=== PATIENT | male | born 1930 | race Caucasian/White ===

== ENCOUNTER 2019-08-22 15:32 | Inpatient (IN) ==
[2019-08-22] MEDS ORDERED: 0.9 % Sodium Chloride 1,000 ML IVC ONE (16:04)
[2019-08-22 16:39] LABS: Basophils % 0.2 %; Eosinophils % 0.2 %; Hematocrit 32.4 % (37.5-50.1); Hemoglobin 9.9 g/dL (12.9-16.9); Lymphocytes % 11.6 %; Mean Corpuscular HGB Conc 30.6 g/dL (31.6-35.5); Mean Corpuscular Hemoglobin 29.3 pg (28.0-33.3); Mean Corpuscular Volume 95.9 fL (83.0-100.0); Mean Platelet Volume 8.2 fL (9.4-12.4); Monocytes % 11.6 %; Neutrophils # 6.1 K/mcL (1.6-8.9); Platelet Count 256 K/mcL (140-400); Red Blood Count 3.38 M/mcL (4.19-5.50); Red Cell Distribution Width 16.6 % (11.5-14.5); Segmented Neutrophils % 75.4 %; White Blood Count 8.2 K/mcL (4.3-11.1)
[2019-08-22 16:46] LABS: Prothrombin Time 11.3 Seconds (9.4-12.1)
[2019-08-22 16:49] LABS: Activated Partial Thrombo Time 30.5 Seconds (26.0-36.0)
[2019-08-22 17:01] LABS: Alanine Aminotransferase 18 Units/L (7-52); Albumin 3.4 g/dL (3.5-5.7); Albumin/Globulin Ratio 1.4 (1.1-2.2); Alkaline Phosphatase 68 Units/L (34-104); Aspartate Amino Transferase 11 Units/L (13-39); BUN/Creatinine Ratio 25 (6-26); Bilirubin,Direct 0.1 mg/dL (0.0-0.2); Bilirubin,Indirect 0.5 mg/dL (0.0-1.2); Bilirubin,Total 0.6 mg/dL (0.3-1.0); Blood Urea Nitrogen 22 mg/dL (8-23); Calcium 8.1 mg/dL (8.6-10.3); Carbon Dioxide 29 mEq/L (23-29); Chloride 100 mEq/L (98-107); Globulin 2.5 g/dL (2.4-3.5); Glucose 156 mg/dL (70-105); Lipase 9 Units/L (11-82); Magnesium 2.2 mg/dL (1.6-2.6); Osmolality,Calculated 285 (280-300); Phosphorous 1.9 mg/dL (2.7-4.5); Potassium 4.3 mEq/L (3.5-5.1); Sodium 134 mEq/L (136-145); Total Protein 5.9 g/dL (6.4-8.9); Troponin I 0.03 ng/mL (< 0.04); eGFR For African Americans > 60 (> 60); eGFR For Non-African Americans > 60 (> 60)
[2019-08-22] MEDS ORDERED: Isovue-370 500 ML BOTTLE IVP ONE (17:30)
[2019-08-22] MEDS ORDERED: Piperacillin/Tazobactam 3.375 GM in 0.9 % Sodium Chloride Mini Bag 100 ML IVPB ONE (17:30)
[2019-08-22 18:38] LABS: Bilirubin,Urine Negative (Negative); Blood,Urine Moderate (Negative); Clarity,Urine Clear (Clear); Color,Urine Yellow (Yellow); Glucose,Urine (UA) Normal (Normal); Ketones,Urine Negative (Negative); Leukocyte Esterase,Urine Trace (Negative); Nitrite,Urine Negative (Negative); PH,Urine 6.5 pH Units (5.0-8.0); Protein,Urine 30 mg/dL (Neg-Trace); Urobilinogen,Urine Normal (Normal)
[2019-08-22 18:40] LABS: Bacteria,Urine None Seen per hpf (None-Few); Hyaline Casts,Urine None Seen per lpf (None-Few); Squamous Epithelial Cell,Urine Many per lpf (None-Few)
[2019-08-22] MEDS ORDERED: *HR* OxyCODONE/APAP 10/325 TABLET PO PRN (20:32)
[2019-08-22] MEDS ORDERED: Ibuprofen 600 MG TABLET PO PRN (20:32)
[2019-08-22] MEDS ORDERED: (Mirabegron [Myrbetriq] 50 MG) PO PRN (21:44)
[2019-08-22] MEDS ORDERED: Diphenoxylate/Atropine 1 TAB TABLET PO PRN (21:44)
[2019-08-22] MEDS ORDERED: dexAMETHasone 4 MG TABLET PO SCH (21:45)
[2019-08-22] MEDS ORDERED: (Abiraterone Acetate [Zytiga] 250 MG) PO SCH (21:45)
[2019-08-22 22:15] LABS: Digoxin 1.6 ng/mL (0.8-2.0)
[2019-08-22] MEDS ORDERED: Ondansetron ODT 4 MG TAB.RAPDIS PO PRN (22:30)
[2019-08-22] MEDS ORDERED: Lactulose Oral Soln 20 GM/30 ML UDC PO PRN (22:33)
[2019-08-22] MEDS: *HR* OxyCODONE/APAP 10/325 TABLET PO PRN (22:41)
[2019-08-22] MEDS ORDERED: Acetaminophen IV 500 MG/50 ML INFUS..BTL IVPB ONE (23:01)
[2019-08-22] MEDS: predniSONE 5 MG TABLET PO SCH (23:12)
[2019-08-22] MEDS: Ringers Solution, Lactated 1,000 ML IVC SCH (23:25)
[2019-08-23] MEDS ORDERED: Petrolatum, White OINT.PACK TP PRN ×3 (00:22→00:45)
[2019-08-23] MEDS ORDERED: Petrolatum, white 28.35 GM TUBE TP PRN (00:45)
[2019-08-23] MEDS: Piperacillin/Tazobactam 3.375 GM in 0.9 % Sodium Chloride Mini Bag 100 ML IVPB SCH ×3 (03:15→18:01)
[2019-08-23] MEDS: *HR* OxyCODONE/APAP 10/325 TABLET PO PRN ×5 (03:17→20:06)
[2019-08-23] MEDS: Ringers Solution, Lactated 1,000 ML IVC SCH (08:03)
[2019-08-23] MEDS: Lactobacillus 1 EACH CAP.SPRINK PO SCH (08:05)
[2019-08-23] MEDS: *HR* Digoxin 0.25 MG TABLET PO SCH (08:05)
[2019-08-23] MEDS: amLODIPine 5 MG TABLET PO SCH (08:05)
[2019-08-23] MEDS: predniSONE 5 MG TABLET PO SCH ×2 (08:06→20:07)
[2019-08-23] MEDS: Multivit/Ca/Min/Fe/FA 1 TAB TABLET PO SCH ×2 (08:06→20:06)
[2019-08-23] MEDS: Vitamin B Complex/Vit C/Vit E 1 EACH TABLET PO SCH (08:06)
[2019-08-23] MEDS ORDERED: [UNRECOGNIZED DRUG - OTHER] PO SCH (09:00)
[2019-08-23] MEDS: Silvasorb 44.4 ML TUBE TP SCH (13:30)
[2019-08-24] MEDS: Piperacillin/Tazobactam 3.375 GM in 0.9 % Sodium Chloride Mini Bag 100 ML IVPB SCH ×2 (02:47→11:18)
[2019-08-24] MEDS: Vitamin B Complex/Vit C/Vit E 1 EACH TABLET PO SCH (08:38)
[2019-08-24] MEDS: Lactobacillus 1 EACH CAP.SPRINK PO SCH (08:39)
[2019-08-24] MEDS: *HR* Digoxin 0.25 MG TABLET PO SCH (08:39)
[2019-08-24] MEDS: Multivit/Ca/Min/Fe/FA 1 TAB TABLET PO SCH (08:40)
[2019-08-24] MEDS: predniSONE 5 MG TABLET PO SCH (08:40)
[2019-08-24] MEDS: *HR* OxyCODONE/APAP 10/325 TABLET PO PRN (08:40)
[2019-08-24] MEDS: amLODIPine 5 MG TABLET PO SCH (08:40)
[2019-08-24] MEDS: Silvasorb 44.4 ML TUBE TP SCH (10:31)
[2019-08-24 11:32] VITALS: BP 149/71
[2019-08-24] MEDS ORDERED: Aminoglycoside Consult 1 EACH MC ONE (14:52)
== END 2019-08-24 14:53 | disposition home or self-care (01) | DRG 863 ==
LOC: EMEROOARM 15:32 → 3ANU 15:32
PROVIDERS: ADMIT Internal Medicine; ATTEND Internal Medicine

== ENCOUNTER 2019-11-15 16:50 | Inpatient (IN) ==
[2019-11-15 17:27] LABS: Basophils % 0.2 %; Eosinophils % 0.3 %; Hematocrit 31.3 % (37.5-50.1); Hemoglobin 9.7 g/dL (12.9-16.9); Immature Granulocytes % 0.5 % (0-4); Lymphocytes # 0.6 K/mcL (0.6-4.6); Lymphocytes % 8.9 %; Mean Corpuscular Hemoglobin 29.3 pg (28.0-33.3); Mean Corpuscular Volume 94.6 fL (83.0-100.0); Mean Platelet Volume 8.1 fL (9.4-12.4); Monocytes # 0.8 K/mcL (0.0-1.3); Monocytes % 12.6 %; Neutrophils # 5.1 K/mcL (1.6-8.9); Platelet Count 329 K/mcL (140-400); Red Blood Count 3.31 M/mcL (4.19-5.50); Red Cell Distribution Width 15.7 % (11.5-14.5); Segmented Neutrophils % 77.5 %; White Blood Count 6.6 K/mcL (4.3-11.1)
[2019-11-15 18:02] LABS: Potassium 5.3 mEq/L (3.5-5.1)
[2019-11-15 18:03] LABS: Albumin 3.5 g/dL (3.5-5.7); Albumin/Globulin Ratio 1.3 (1.1-2.2); Bilirubin,Direct 0.1 mg/dL (0.0-0.2); Bilirubin,Indirect 0.2 mg/dL (0.0-1.0); Bilirubin,Total 0.3 mg/dL (0.3-1.0); Globulin 2.8 g/dL (2.4-3.5); Total Protein 6.3 g/dL (6.4-8.9)
[2019-11-15 18:36] LABS: Bilirubin,Urine Negative (Negative); Blood,Urine Large (Negative); Clarity,Urine Turbid (Clear); Color,Urine Dark Yellow (Yellow); Glucose,Urine (UA) Normal (Normal); Ketones,Urine Trace mg/dL (Negative); Leukocyte Esterase,Urine Moderate (Negative); Nitrite,Urine Negative (Negative); PH,Urine 5.5 pH Units (5.0-8.0); Protein,Urine >=300 mg/dL (Neg-Trace); Specific Gravity,Urine 1.029 (1.010-1.025); Urobilinogen,Urine Normal (Normal)
[2019-11-15] MEDS: 0.9 % Sodium Chloride 1,000 ML IVC SCH (18:38)
[2019-11-15 18:40] LABS: Bacteria,Urine None Seen per hpf (None-Few); RBC,Urine 50-100 per hpf (0-3); Squamous Epithelial Cell,Urine Many per lpf (None-Few); WBC,Urine TNTC per hpf (0-3)
[2019-11-15 19:00] LABS: Granular Casts,Urine Few per lpf (None Seen)
[2019-11-15] MEDS ORDERED: cefTRIAXone 1,000 MG in Water for inj. (sterile) 10 ML IVP ONE (19:01)
[2019-11-15] MEDS ORDERED: *HR* OxyCODONE/APAP 10/325 TABLET PO ONE (20:11)
[2019-11-15] MEDS ORDERED: Ondansetron 4 MG/2 ML VIAL IVP PRN (21:44)
[2019-11-15] MEDS ORDERED: Naloxone 0.4 MG/ML INJ IVP PRN (21:44)
[2019-11-15] MEDS: *HR* Heparin 5,000 UNIT/ML VIAL SQ SCH (23:08)
[2019-11-15] MEDS: Azithromycin 500 MG in 0.9 % Sodium Chloride 250 ML IVPB SCH (23:10)
[2019-11-15 23:17] LABS: Albumin 3.1 g/dL (3.5-5.7); Albumin/Globulin Ratio 1.2 (1.1-2.2); Bilirubin,Total 0.3 mg/dL (0.3-1.0); Calcium 8.3 mg/dL (8.6-10.3); Globulin 2.5 g/dL (2.4-3.5); Potassium 5.3 mEq/L (3.5-5.1); Total Protein 5.6 g/dL (6.4-8.9)
[2019-11-16] MEDS: 0.9 % Sodium Chloride 1,000 ML IVC SCH ×3 (00:46→13:39)
[2019-11-16] MEDS: *HR* Heparin 5,000 UNIT/ML VIAL SQ SCH ×3 (05:31→21:58)
[2019-11-16 07:39] LABS: Basophils % 0.2 %; Eosinophils % 0.5 %; Hematocrit 27.7 % (37.5-50.1); Hemoglobin 8.4 g/dL (12.9-16.9); Immature Granulocytes % 0.7 % (0-4); Lymphocytes # 0.7 K/mcL (0.6-4.6); Lymphocytes % 11.9 %; Mean Corpuscular HGB Conc 30.3 g/dL (31.6-35.5); Mean Corpuscular Hemoglobin 29.9 pg (28.0-33.3); Mean Corpuscular Volume 98.6 fL (83.0-100.0); Mean Platelet Volume 8.6 fL (9.4-12.4); Monocytes # 0.7 K/mcL (0.0-1.3); Neutrophils # 4.5 K/mcL (1.6-8.9); Platelet Count 260 K/mcL (140-400); Red Blood Count 2.81 M/mcL (4.19-5.50); Red Cell Distribution Width 15.7 % (11.5-14.5); Segmented Neutrophils % 74.7 %; White Blood Count 6.1 K/mcL (4.3-11.1)
[2019-11-16 07:52] LABS: Calcium 8.6 mg/dL (8.6-10.3); Potassium 5.2 mEq/L (3.5-5.1)
[2019-11-16] MEDS: cefTRIAXone 1,000 MG in Water for inj. (sterile) 10 ML IVP SCH (08:40)
[2019-11-16] MEDS ORDERED: *HR* FentaNYL PATCH 12 MCG PATCH TD SCH (13:15)
[2019-11-16] MEDS: Lactulose Oral Soln 20 GM/30 ML UDC PO PRN (13:36)
[2019-11-16] MEDS: *HR* Digoxin 0.25 MG TABLET PO SCH (13:52)
[2019-11-16] MEDS: amLODIPine 5 MG TABLET PO SCH ×2 (13:52→21:57)
[2019-11-16] MEDS: predniSONE 5 MG TABLET PO SCH ×2 (13:53→21:57)
[2019-11-16] MEDS: *HR* FentaNYL PATCH 25 MCG PATCH TD SCH (16:13)
[2019-11-16] MEDS: Multivit/Ca/Min/Fe/FA 1 TAB TABLET PO SCH (21:57)
[2019-11-16] MEDS: Azithromycin 500 MG in 0.9 % Sodium Chloride 250 ML IVPB SCH (21:58)
[2019-11-17] MEDS: *HR* OxyCODONE/APAP 10/325 TABLET PO PRN (05:48)
[2019-11-17] MEDS: *HR* Heparin 5,000 UNIT/ML VIAL SQ SCH ×3 (05:49→21:55)
[2019-11-17 07:38] LABS: Basophils % 0.2 %; Eosinophils % 0.7 %; Hematocrit 27.5 % (37.5-50.1); Hemoglobin 8.6 g/dL (12.9-16.9); Immature Granulocytes % 1.1 % (0-4); Lymphocytes # 0.5 K/mcL (0.6-4.6); Lymphocytes % 9.9 %; Mean Corpuscular HGB Conc 31.3 g/dL (31.6-35.5); Mean Corpuscular Hemoglobin 29.1 pg (28.0-33.3); Mean Corpuscular Volume 92.9 fL (83.0-100.0); Mean Platelet Volume 8.5 fL (9.4-12.4); Monocytes # 0.5 K/mcL (0.0-1.3); Monocytes % 9.9 %; Neutrophils # 3.5 K/mcL (1.6-8.9); Platelet Count 275 K/mcL (140-400); Red Blood Count 2.96 M/mcL (4.19-5.50); Red Cell Distribution Width 15.4 % (11.5-14.5); Segmented Neutrophils % 78.2 %; White Blood Count 4.5 K/mcL (4.3-11.1)
[2019-11-17 08:00] LABS: BUN/Creatinine Ratio 19 (6-26); Blood Urea Nitrogen 23 mg/dL (8-23); Calcium 7.8 mg/dL (8.6-10.3); Carbon Dioxide 27 mEq/L (23-29); Chloride 102 mEq/L (98-107); Glucose 144 mg/dL (70-105); Osmolality,Calculated 292 (280-300); Potassium 4.6 mEq/L (3.5-5.1); Sodium 138 mEq/L (136-145); eGFR For African Americans > 60 (> 60); eGFR For Non-African Americans 58 (> 60)
[2019-11-17] MEDS ORDERED: [UNRECOGNIZED DRUG - OTHER] PO SCH (09:00)
[2019-11-17] MEDS: *HR* Digoxin 0.25 MG TABLET PO SCH (09:55)
[2019-11-17] MEDS: amLODIPine 5 MG TABLET PO SCH ×2 (09:55→21:54)
[2019-11-17] MEDS: Multivit/Ca/Min/Fe/FA 1 TAB TABLET PO SCH ×2 (09:55→21:54)
[2019-11-17] MEDS: predniSONE 5 MG TABLET PO SCH ×2 (09:55→21:54)
[2019-11-17] MEDS: cefTRIAXone 1,000 MG in Water for inj. (sterile) 10 ML IVP SCH (09:56)
[2019-11-17] MEDS ORDERED: Acetaminophen 325 MG TABLET PO ONE (21:36)
[2019-11-17] MEDS: Azithromycin 500 MG in 0.9 % Sodium Chloride 250 ML IVPB SCH (21:54)
[2019-11-17] MEDS: 0.9 % Sodium Chloride 1,000 ML IVC SCH ×2 (21:56→21:59)
[2019-11-17] MEDS ORDERED: Haloperidol Lactate 5 MG/ML VIAL IVP ONE (23:44)
[2019-11-18] MEDS ORDERED: *HR* LORazepam 2 MG/ML VIAL IVP ONE (04:33)
[2019-11-18] MEDS: *HR* OxyCODONE/APAP 10/325 TABLET PO PRN ×3 (04:53→21:23)
[2019-11-18] MEDS: *HR* Heparin 5,000 UNIT/ML VIAL SQ SCH ×3 (04:54→21:23)
[2019-11-18 05:35] LABS: Basophils % 0.4 %; Hematocrit 29.6 % (37.5-50.1); Hemoglobin 9.2 g/dL (12.9-16.9); Immature Granulocytes % 2.2 % (0-4); Lymphocytes # 0.4 K/mcL (0.6-4.6); Lymphocytes % 7.3 %; Mean Corpuscular HGB Conc 31.1 g/dL (31.6-35.5); Mean Corpuscular Hemoglobin 28.7 pg (28.0-33.3); Mean Corpuscular Volume 92.2 fL (83.0-100.0); Mean Platelet Volume 8.7 fL (9.4-12.4); Monocytes # 0.5 K/mcL (0.0-1.3); Monocytes % 8.9 %; Neutrophils # 4.1 K/mcL (1.6-8.9); Platelet Count 333 K/mcL (140-400); Red Blood Count 3.21 M/mcL (4.19-5.50); Red Cell Distribution Width 15.2 % (11.5-14.5); Segmented Neutrophils % 81.2 %; White Blood Count 5.1 K/mcL (4.3-11.1)
[2019-11-18 05:57] LABS: BUN/Creatinine Ratio 16 (6-26); Blood Urea Nitrogen 19 mg/dL (8-23); Calcium 8.1 mg/dL (8.6-10.3); Carbon Dioxide 25 mEq/L (23-29); Chloride 103 mEq/L (98-107); Glucose 150 mg/dL (70-105); Osmolality,Calculated 291 (280-300); Potassium 4.5 mEq/L (3.5-5.1); Sodium 138 mEq/L (136-145); eGFR For African Americans > 60 (> 60); eGFR For Non-African Americans 57 (> 60)
[2019-11-18] MEDS: amLODIPine 5 MG TABLET PO SCH ×2 (10:36→20:20)
[2019-11-18] MEDS: Multivit/Ca/Min/Fe/FA 1 TAB TABLET PO SCH ×2 (10:36→20:19)
[2019-11-18] MEDS: predniSONE 5 MG TABLET PO SCH ×2 (10:36→20:19)
[2019-11-18] MEDS: *HR* Digoxin 0.25 MG TABLET PO SCH (10:37)
[2019-11-18] MEDS: Lactulose Oral Soln 20 GM/30 ML UDC PO PRN (10:46)
[2019-11-18] MEDS ORDERED: levoFLOXacin 750 MG/150 ML 750 MG/150 ML BAG IVPB SCH (15:00)
[2019-11-19 04:56] LABS: Basophils % 0.8 %; Eosinophils % 0.2 %; Hematocrit 28.5 % (37.5-50.1); Hemoglobin 8.7 g/dL (12.9-16.9); Immature Granulocytes % 3.7 % (0-4); Lymphocytes # 0.6 K/mcL (0.6-4.6); Lymphocytes % 11.4 %; Mean Corpuscular HGB Conc 30.5 g/dL (31.6-35.5); Mean Corpuscular Hemoglobin 29.4 pg (28.0-33.3); Mean Corpuscular Volume 96.3 fL (83.0-100.0); Mean Platelet Volume 8.4 fL (9.4-12.4); Monocytes # 0.5 K/mcL (0.0-1.3); Neutrophils # 3.8 K/mcL (1.6-8.9); Platelet Count 271 K/mcL (140-400); Red Blood Count 2.96 M/mcL (4.19-5.50); Red Cell Distribution Width 15.4 % (11.5-14.5); Segmented Neutrophils % 73.9 %; White Blood Count 5.1 K/mcL (4.3-11.1)
[2019-11-19 05:12] LABS: BUN/Creatinine Ratio 14 (6-26); Blood Urea Nitrogen 16 mg/dL (8-23); Calcium 7.6 mg/dL (8.6-10.3); Carbon Dioxide 26 mEq/L (23-29); Chloride 108 mEq/L (98-107); Glucose 133 mg/dL (70-105); Osmolality,Calculated 291 (280-300); Potassium 5.1 mEq/L (3.5-5.1); Sodium 139 mEq/L (136-145); eGFR For African Americans > 60 (> 60); eGFR For Non-African Americans 60 (> 60)
[2019-11-19] MEDS: *HR* Heparin 5,000 UNIT/ML VIAL SQ SCH ×3 (05:15→20:53)
[2019-11-19] MEDS: *HR* OxyCODONE/APAP 10/325 TABLET PO PRN ×3 (05:15→17:50)
[2019-11-19] MEDS: 0.9 % Sodium Chloride 1,000 ML IVC SCH ×3 (05:16→20:54)
[2019-11-19] MEDS: *HR* Digoxin 0.25 MG TABLET PO SCH (10:01)
[2019-11-19] MEDS: Lactulose Oral Soln 20 GM/30 ML UDC PO PRN (10:08)
[2019-11-19] MEDS: amLODIPine 5 MG TABLET PO SCH ×2 (10:10→20:53)
[2019-11-19] MEDS: predniSONE 5 MG TABLET PO SCH ×2 (10:11→20:53)
[2019-11-19] MEDS: Multivit/Ca/Min/Fe/FA 1 TAB TABLET PO SCH ×2 (10:11→20:53)
[2019-11-19] MEDS: *HR* FentaNYL PATCH 25 MCG PATCH TD SCH (14:58)
[2019-11-20 06:23] VITALS: BP 187/96
[2019-11-20] MEDS: *HR* Heparin 5,000 UNIT/ML VIAL SQ SCH (06:27)
[2019-11-20] MEDS: Multivit/Ca/Min/Fe/FA 1 TAB TABLET PO SCH (08:20)
[2019-11-20] MEDS: amLODIPine 5 MG TABLET PO SCH (08:20)
[2019-11-20] MEDS: predniSONE 5 MG TABLET PO SCH (08:20)
== END 2019-11-20 10:39 | DRG 917 ==
LOC: EMEROOARM 16:50 → 3ANU 16:50
PROVIDERS: ADMIT Student in an Organized Health Care Education/Training Program; ATTEND Student in an Organized Health Care Education/Training Program

== ENCOUNTER 2019-12-22 15:51 | Inpatient (IN) ==
[2019-12-22] MEDS ORDERED: 0.9 % Sodium Chloride 1,000 ML IVC ONE (16:12)
[2019-12-22 16:19] LABS: Bilirubin,Urine Large (Negative); Blood,Urine Large (Negative); Clarity,Urine Turbid (Clear); Color,Urine Red (Yellow); Glucose,Urine (UA) 100 mg/dL (Normal); Ketones,Urine 40 mg/dL (Negative); Leukocyte Esterase,Urine Large (Negative); Nitrite,Urine Negative (Negative); PH,Urine 8.5 pH Units (5.0-8.0); Protein,Urine >=300 mg/dL (Neg-Trace); Specific Gravity,Urine <= 1.005 (1.010-1.025); Urobilinogen,Urine >=8.0 mg/dL (Normal)
[2019-12-22 16:21] LABS: Bacteria,Urine Moderate per hpf (None-Few); RBC,Urine TNTC per hpf (0-3)
[2019-12-22 16:22] LABS: WBC,Urine 0-3 per hpf (0-3)
[2019-12-22 16:22] LABS: Basophils % 0.2 %; Eosinophils % 0.3 %; Hematocrit 29.7 % (37.5-50.1); Hemoglobin 9.2 g/dL (12.9-16.9); Immature Granulocytes % 1.2 % (0-4); Lymphocytes # 0.8 K/mcL (0.6-4.6); Lymphocytes % 14.5 %; Mean Corpuscular Hemoglobin 28.3 pg (28.0-33.3); Mean Corpuscular Volume 91.4 fL (83.0-100.0); Mean Platelet Volume 8.3 fL (9.4-12.4); Monocytes # 0.5 K/mcL (0.0-1.3); Monocytes % 8.6 %; Neutrophils # 4.3 K/mcL (1.6-8.9); Platelet Count 204 K/mcL (140-400); Red Blood Count 3.25 M/mcL (4.19-5.50); Red Cell Distribution Width 15.7 % (11.5-14.5); Segmented Neutrophils % 75.2 %; White Blood Count 5.7 K/mcL (4.3-11.1)
[2019-12-22 16:42] LABS: BUN/Creatinine Ratio 17 (6-26); Blood Urea Nitrogen 23 mg/dL (8-23); Carbon Dioxide 25 mEq/L (23-29); Chloride 99 mEq/L (98-107); Glucose 123 mg/dL (70-105); Osmolality,Calculated 281 (280-300); Potassium 4.3 mEq/L (3.5-5.1); Sodium 133 mEq/L (136-145); eGFR For African Americans > 60 (> 60); eGFR For Non-African Americans 50 (> 60)
[2019-12-22] MEDS ORDERED: Isovue-370 500 ML BOTTLE IVP ONE (17:22)
[2019-12-22] MEDS ORDERED: Naloxone 0.4 MG/ML INJ IVP PRN (19:57)
[2019-12-22] MEDS ORDERED: Ondansetron 4 MG/2 ML VIAL IVP PRN (19:57)
[2019-12-22 20:39] LABS: Hematocrit 26.8 % (37.5-50.1); Hemoglobin 8.5 g/dL (12.9-16.9)
[2019-12-22] MEDS ORDERED: *HR* FentaNYL PATCH 25 MCG PATCH TD SCH (21:00)
[2019-12-22] MEDS: predniSONE 5 MG TABLET PO SCH (21:24)
[2019-12-22] MEDS: *HR* OxyCODONE/APAP 10/325 TABLET PO PRN (21:24)
[2019-12-22] MEDS: amLODIPine 5 MG TABLET PO SCH (21:56)
[2019-12-22] MEDS: IMIQUIMOD TP SCH (21:58)
[2019-12-23 02:50] LABS: Basophils % 0.2 %; Eosinophils % 0.3 %; Hematocrit 27.2 % (37.5-50.1); Hemoglobin 8.5 g/dL (12.9-16.9); Immature Granulocytes % 1.3 % (0-4); Lymphocytes # 0.6 K/mcL (0.6-4.6); Lymphocytes % 9.9 %; Mean Corpuscular HGB Conc 31.3 g/dL (31.6-35.5); Mean Corpuscular Hemoglobin 28.7 pg (28.0-33.3); Mean Corpuscular Volume 91.9 fL (83.0-100.0); Mean Platelet Volume 8.6 fL (9.4-12.4); Monocytes # 0.5 K/mcL (0.0-1.3); Monocytes % 7.4 %; Neutrophils # 4.9 K/mcL (1.6-8.9); Platelet Count 206 K/mcL (140-400); Red Blood Count 2.96 M/mcL (4.19-5.50); Red Cell Distribution Width 15.9 % (11.5-14.5); Segmented Neutrophils % 80.9 %; White Blood Count 6.1 K/mcL (4.3-11.1)
[2019-12-23 02:51] LABS: Prothrombin Time 10.8 Seconds (9.4-12.1)
[2019-12-23 02:53] LABS: Hematocrit 27.5 % (37.5-50.1); Hemoglobin 8.3 g/dL (12.9-16.9)
[2019-12-23 03:09] LABS: BUN/Creatinine Ratio 15 (6-26); Blood Urea Nitrogen 18 mg/dL (8-23); Calcium 7.5 mg/dL (8.6-10.3); Carbon Dioxide 26 mEq/L (23-29); Chloride 101 mEq/L (98-107); Glucose 146 mg/dL (70-105); Magnesium 1.9 mg/dL (1.6-2.6); Osmolality,Calculated 283 (280-300); Potassium 4.7 mEq/L (3.5-5.1); Sodium 134 mEq/L (136-145); eGFR For African Americans > 60 (> 60); eGFR For Non-African Americans 57 (> 60)
[2019-12-23] MEDS: *HR* OxyCODONE/APAP 10/325 TABLET PO PRN ×4 (05:22→21:27)
[2019-12-23] MEDS: *HR* Digoxin 0.25 MG TABLET PO SCH (07:27)
[2019-12-23] MEDS: amLODIPine 5 MG TABLET PO SCH (07:29)
[2019-12-23] MEDS: IMIQUIMOD TP SCH ×2 (07:30→21:27)
[2019-12-23] MEDS: predniSONE 5 MG TABLET PO SCH ×2 (07:31→21:27)
[2019-12-23] MEDS: Multivit/Ca/Min/Fe/FA 1 TAB TABLET PO SCH (07:31)
[2019-12-23] MEDS: Lactulose Oral Soln 20 GM/30 ML UDC PO PRN (07:32)
[2019-12-23 08:18] LABS: Hematocrit 26.1 % (37.5-50.1); Hemoglobin 8.4 g/dL (12.9-16.9)
[2019-12-23] MEDS ORDERED: DOCUSATE PO SCH (09:00)
[2019-12-23] MEDS ORDERED: B12 PO SCH (09:00)
[2019-12-23] MEDS ORDERED: IRON PO SCH (09:00)
[2019-12-23] MEDS ORDERED: [UNRECOGNIZED DRUG - OTHER] PO SCH (09:00)
[2019-12-23] MEDS ORDERED: FOLIC ACID PO SCH (09:00)
[2019-12-23 16:49] LABS: Hematocrit 26.5 % (37.5-50.1); Hemoglobin 8.3 g/dL (12.9-16.9)
[2019-12-24] MEDS: *HR* OxyCODONE/APAP 10/325 TABLET PO PRN ×3 (03:57→13:39)
[2019-12-24 07:10] LABS: Hematocrit 28.6 % (37.5-50.1); Hemoglobin 8.8 g/dL (12.9-16.9); Mean Corpuscular HGB Conc 30.8 g/dL (31.6-35.5); Mean Corpuscular Hemoglobin 28.8 pg (28.0-33.3); Mean Corpuscular Volume 93.5 fL (83.0-100.0); Platelet Count 215 K/mcL (140-400); Red Blood Count 3.06 M/mcL (4.19-5.50); Red Cell Distribution Width 15.6 % (11.5-14.5); White Blood Count 3.5 K/mcL (4.3-11.1)
[2019-12-24 07:30] LABS: BUN/Creatinine Ratio 13 (6-26); Blood Urea Nitrogen 16 mg/dL (8-23); Carbon Dioxide 26 mEq/L (23-29); Chloride 103 mEq/L (98-107); Glucose 119 mg/dL (70-105); Osmolality,Calculated 288 (280-300); Potassium 4.9 mEq/L (3.5-5.1); Sodium 138 mEq/L (136-145); eGFR For African Americans > 60 (> 60); eGFR For Non-African Americans 57 (> 60)
[2019-12-24] MEDS: IMIQUIMOD TP SCH ×2 (09:31→13:39)
[2019-12-24] MEDS: amLODIPine 5 MG TABLET PO SCH (09:32)
[2019-12-24] MEDS: Multivit/Ca/Min/Fe/FA 1 TAB TABLET PO SCH (09:32)
[2019-12-24] MEDS: Lactulose Oral Soln 20 GM/30 ML UDC PO PRN (09:32)
[2019-12-24] MEDS: predniSONE 5 MG TABLET PO SCH (09:33)
[2019-12-24] MEDS: *HR* Digoxin 0.25 MG TABLET PO SCH (09:33)
[2019-12-24 15:21] VITALS: BP 149/80
[2019-12-26] MEDS ORDERED: *HR* Digoxin 0.25 MG TABLET PO SCH (09:00)
== END 2019-12-24 15:53 | disposition home or self-care (01) | DRG 696 ==
LOC: 3ANU 15:51 → EMEROOARM 15:51 → SUATTDRO 19:27 → 3ANU 19:34
PROVIDERS: ADMIT Pharmacist; ATTEND Internal Medicine

== ENCOUNTER 2020-03-09 04:20 | Inpatient (IN) ==
[2020-03-09] MEDS ORDERED: cefTRIAXone 1,000 MG in Water for inj. (sterile) 10 ML IVP ONE (04:36)
[2020-03-09] MEDS: 0.9 % Sodium Chloride 1,000 ML IVC SCH ×4 (05:00→22:02)
[2020-03-09 05:14] LABS: Basophils % 0.1 %; Eosinophils # 0.1 K/mcL (0.0-0.6); Eosinophils % 0.6 %; Hematocrit 31.3 % (37.5-50.1); Hemoglobin 9.4 g/dL (12.9-16.9); Lymphocytes # 0.8 K/mcL (0.6-4.6); Lymphocytes % 6.5 %; Mean Corpuscular Hemoglobin 28.4 pg (28.0-33.3); Mean Corpuscular Volume 94.6 fL (83.0-100.0); Mean Platelet Volume 8.6 fL (9.4-12.4); Monocytes # 0.7 K/mcL (0.0-1.3); Monocytes % 5.2 %; Platelet Count 266 K/mcL (140-400); Red Blood Count 3.31 M/mcL (4.19-5.50); Red Cell Distribution Width 16.7 % (11.5-14.5); Segmented Neutrophils % 86.6 %; White Blood Count 12.7 K/mcL (4.3-11.1)
[2020-03-09 05:37] LABS: Alanine Aminotransferase 19 Units/L (7-52); Albumin 3.6 g/dL (3.5-5.7); Albumin/Globulin Ratio 1.6 (1.1-2.2); Alkaline Phosphatase 74 Units/L (34-104); Aspartate Amino Transferase 12 Units/L (13-39); BUN/Creatinine Ratio 28 (6-26); Bilirubin,Direct 0.1 mg/dL (0.0-0.2); Bilirubin,Indirect 0.4 mg/dL (0.0-1.0); Bilirubin,Total 0.5 mg/dL (0.3-1.0); Blood Urea Nitrogen 39 mg/dL (8-23); Calcium 8.6 mg/dL (8.6-10.3); Carbon Dioxide 28 mEq/L (23-29); Chloride 99 mEq/L (98-107); Creatine Kinase 48 Units/L (30-223); Globulin 2.3 g/dL (2.4-3.5); Glucose 101 mg/dL (70-105); Magnesium 2.3 mg/dL (1.6-2.6); Osmolality,Calculated 288 (280-300); Phosphorous 3.7 mg/dL (2.7-4.5); Potassium 5.5 mEq/L (3.5-5.1); Sodium 134 mEq/L (136-145); Total Protein 5.9 g/dL (6.4-8.9); eGFR For African Americans 59 (> 60); eGFR For Non-African Americans 49 (> 60)
[2020-03-09 05:38] LABS: Troponin I 0.03 ng/mL (< 0.04)
[2020-03-09 07:29] LABS: Bilirubin,Urine Negative (Negative); Blood,Urine Large (Negative); Clarity,Urine Clear (Clear); Color,Urine Yellow (Yellow); Glucose,Urine (UA) Normal (Normal); Ketones,Urine Negative (Negative); Leukocyte Esterase,Urine Small (Negative); Nitrite,Urine Positive (Negative); Protein,Urine 100 mg/dL (Neg-Trace); Specific Gravity,Urine 1.015 (1.010-1.025); Urobilinogen,Urine Normal (Normal)
[2020-03-09 07:31] LABS: Bacteria,Urine None Seen per hpf (None-Few); Hyaline Casts,Urine None Seen per lpf (None-Few); RBC,Urine TNTC per hpf (0-3); Squamous Epithelial Cell,Urine Moderate per lpf (None-Few)
[2020-03-09] MEDS ORDERED: cefTRIAXone 1,000 MG in Water for inj. (sterile) 10 ML IVP STA (07:47)
[2020-03-09] MEDS ORDERED: Aminoglycoside Consult 1 EACH MC ONE (08:18)
[2020-03-09] MEDS ORDERED: Ondansetron 4 MG/2 ML VIAL IVP PRN (08:23)
[2020-03-09] MEDS ORDERED: Naloxone 0.4 MG/ML INJ IVP PRN (08:23)
[2020-03-09] MEDS ORDERED: Ringers Solution, Lactated 1,000 ML IVC SCH (08:30)
[2020-03-09 08:39] LABS: Digoxin < 0.3 ng/mL (0.8-2.0); Ferritin 151 ng/mL (20-250); Lactate Dehydrogenase 162 Units/L (140-271)
[2020-03-09] MEDS: levoFLOXacin 750 MG/150 ML 750 MG/150 ML BAG IVPB SCH (12:39)
[2020-03-09] MEDS ORDERED: 0.9 % Sodium Chloride 1,000 ML IVC ONE (13:45)
[2020-03-09] MEDS ORDERED: polyethylene glycoL 3350 17 GM POWD.PACK PO PRN (15:34)
[2020-03-09] MEDS ORDERED: *HR* FentaNYL PATCH 25 MCG PATCH TD SCH (16:00)
[2020-03-09] MEDS: DilTIAZem CD (24hr) 180 MG CAP.ER.24H PO SCH (16:01)
[2020-03-09] MEDS: Lactulose Oral Soln 20 GM/30 ML UDC PO SCH (21:14)
[2020-03-09] MEDS: *HR* OxyCODONE/APAP 10/325 TABLET PO PRN (21:16)
[2020-03-10] MEDS: 0.9 % Sodium Chloride 1,000 ML IVC SCH (00:09)
[2020-03-10 06:07] LABS: Basophils % 0.1 %; Eosinophils # 0.2 K/mcL (0.0-0.6); Eosinophils % 2.5 %; Hematocrit 29.9 % (37.5-50.1); Immature Granulocytes % 0.7 % (0-4); Lymphocytes # 0.7 K/mcL (0.6-4.6); Lymphocytes % 9.6 %; Mean Corpuscular HGB Conc 30.1 g/dL (31.6-35.5); Mean Corpuscular Hemoglobin 28.5 pg (28.0-33.3); Mean Corpuscular Volume 94.6 fL (83.0-100.0); Mean Platelet Volume 8.3 fL (9.4-12.4); Monocytes # 0.5 K/mcL (0.0-1.3); Monocytes % 7.2 %; Neutrophils # 5.6 K/mcL (1.6-8.9); Platelet Count 169 K/mcL (140-400); Red Blood Count 3.16 M/mcL (4.19-5.50); Red Cell Distribution Width 16.6 % (11.5-14.5); Segmented Neutrophils % 79.9 %; White Blood Count 7.1 K/mcL (4.3-11.1)
[2020-03-10 06:11] LABS: Prothrombin Time 11.5 Seconds (9.4-12.1)
[2020-03-10 06:26] LABS: BUN/Creatinine Ratio 24 (6-26); Blood Urea Nitrogen 28 mg/dL (8-23); Calcium 8.1 mg/dL (8.6-10.3); Carbon Dioxide 23 mEq/L (23-29); Chloride 107 mEq/L (98-107); Glucose 87 mg/dL (70-105); Osmolality,Calculated 291 (280-300); Phosphorous 4.3 mg/dL (2.7-4.5); Potassium 4.6 mEq/L (3.5-5.1); Sodium 138 mEq/L (136-145); eGFR For African Americans > 60 (> 60); eGFR For Non-African Americans 59 (> 60)
[2020-03-10] MEDS: Lactulose Oral Soln 20 GM/30 ML UDC PO SCH ×2 (09:58→19:48)
[2020-03-10] MEDS: predniSONE 5 MG TABLET PO SCH (09:59)
[2020-03-10] MEDS: DilTIAZem CD (24hr) 180 MG CAP.ER.24H PO SCH (09:59)
[2020-03-10] MEDS: amLODIPine 5 MG TABLET PO SCH (09:59)
[2020-03-10] MEDS: *HR* Heparin 5,000 UNIT/ML VIAL SQ SCH (18:39)
[2020-03-10] MEDS: *HR* OxyCODONE/APAP 10/325 TABLET PO PRN (19:53)
[2020-03-11 02:25] LABS: Eosinophils # 0.1 K/mcL (0.0-0.6); Eosinophils % 2.7 %; Hematocrit 29.4 % (37.5-50.1); Lymphocytes # 0.6 K/mcL (0.6-4.6); Lymphocytes % 11.7 %; Mean Corpuscular HGB Conc 30.6 g/dL (31.6-35.5); Mean Corpuscular Hemoglobin 28.6 pg (28.0-33.3); Mean Corpuscular Volume 93.3 fL (83.0-100.0); Mean Platelet Volume 8.8 fL (9.4-12.4); Monocytes # 0.5 K/mcL (0.0-1.3); Monocytes % 9.8 %; Neutrophils # 3.8 K/mcL (1.6-8.9); Platelet Count 188 K/mcL (140-400); Red Blood Count 3.15 M/mcL (4.19-5.50); Red Cell Distribution Width 16.5 % (11.5-14.5); Segmented Neutrophils % 74.8 %; White Blood Count 5.1 K/mcL (4.3-11.1)
[2020-03-11 02:45] LABS: BUN/Creatinine Ratio 25 (6-26); Blood Urea Nitrogen 30 mg/dL (8-23); Calcium 8.3 mg/dL (8.6-10.3); Carbon Dioxide 24 mEq/L (23-29); Chloride 104 mEq/L (98-107); Glucose 106 mg/dL (70-105); Osmolality,Calculated 289 (280-300); Potassium 4.7 mEq/L (3.5-5.1); Sodium 136 mEq/L (136-145); eGFR For African Americans > 60 (> 60); eGFR For Non-African Americans 58 (> 60)
[2020-03-11] MEDS: *HR* Heparin 5,000 UNIT/ML VIAL SQ SCH ×2 (06:05→17:23)
[2020-03-11] MEDS: levoFLOXacin 750 MG/150 ML 750 MG/150 ML BAG IVPB SCH (08:32)
[2020-03-11] MEDS: DilTIAZem CD (24hr) 180 MG CAP.ER.24H PO SCH (08:32)
[2020-03-11] MEDS: predniSONE 5 MG TABLET PO SCH (08:32)
[2020-03-11] MEDS: amLODIPine 5 MG TABLET PO SCH (08:32)
[2020-03-11] MEDS: Lactulose Oral Soln 20 GM/30 ML UDC PO SCH ×2 (08:33→20:17)
[2020-03-11] MEDS: *HR* OxyCODONE/APAP 10/325 TABLET PO PRN ×3 (08:43→20:17)
[2020-03-11] MEDS: Silvasorb 44.4 ML TUBE TP SCH (17:24)
[2020-03-12] MEDS: *HR* OxyCODONE/APAP 10/325 TABLET PO PRN ×4 (00:50→21:20)
[2020-03-12 03:06] LABS: Eosinophils # 0.1 K/mcL (0.0-0.6); Eosinophils % 1.8 %; Hematocrit 29.2 % (37.5-50.1); Hemoglobin 8.9 g/dL (12.9-16.9); Immature Granulocytes % 0.5 % (0-4); Lymphocytes # 0.8 K/mcL (0.6-4.6); Lymphocytes % 19.7 %; Mean Corpuscular HGB Conc 30.5 g/dL (31.6-35.5); Mean Corpuscular Hemoglobin 28.3 pg (28.0-33.3); Mean Corpuscular Volume 92.7 fL (83.0-100.0); Mean Platelet Volume 8.6 fL (9.4-12.4); Monocytes # 0.4 K/mcL (0.0-1.3); Monocytes % 10.1 %; Neutrophils # 2.7 K/mcL (1.6-8.9); Platelet Count 203 K/mcL (140-400); Red Blood Count 3.15 M/mcL (4.19-5.50); Red Cell Distribution Width 16.4 % (11.5-14.5); Segmented Neutrophils % 67.9 %
[2020-03-12 03:20] LABS: BUN/Creatinine Ratio 21 (6-26); Blood Urea Nitrogen 27 mg/dL (8-23); Calcium 8.5 mg/dL (8.6-10.3); Carbon Dioxide 26 mEq/L (23-29); Chloride 103 mEq/L (98-107); Glucose 102 mg/dL (70-105); Osmolality,Calculated 287 (280-300); Potassium 4.8 mEq/L (3.5-5.1); Sodium 136 mEq/L (136-145); eGFR For African Americans > 60 (> 60); eGFR For Non-African Americans 54 (> 60)
[2020-03-12] MEDS: *HR* Heparin 5,000 UNIT/ML VIAL SQ SCH (05:45)
[2020-03-12] MEDS ORDERED: Lidocaine -MPF 2% 2 ML VIAL ONE (07:20)
[2020-03-12] MEDS ORDERED: Dexamethasone 4 MG/ML VIAL ONE (07:20)
[2020-03-12] MEDS ORDERED: Ondansetron 4 MG/2 ML VIAL ONE (07:20)
[2020-03-12] MEDS ORDERED: *HR* FentaNYL (PF) 100 MCG/2 ML VIAL ONE (07:20)
[2020-03-12] MEDS ORDERED: *HR* Propofol 200 MG/20 ML VIAL IVP ONE (07:20)
[2020-03-12] MEDS ORDERED: levoFLOXacin 750 MG/150 ML 750 MG/150 ML BAG IVPB ONE (08:25)
[2020-03-12] MEDS ORDERED: *HR* PHENYLEPHRINE 1,000 MCG/10 ML SYRINGE IVP ONE (08:26)
[2020-03-12] MEDS ORDERED: polyethylene glycoL 3350 17 GM POWD.PACK PO PRN (10:01)
[2020-03-12] MEDS ORDERED: Ondansetron 4 MG/2 ML VIAL IVP PRN (10:01)
[2020-03-12] MEDS ORDERED: Naloxone 0.4 MG/ML INJ IVP PRN (10:01)
[2020-03-12] MEDS: *HR* FentaNYL PATCH 25 MCG PATCH TD SCH (15:28)
[2020-03-12] MEDS: Lactulose Oral Soln 20 GM/30 ML UDC PO SCH (21:20)
[2020-03-13] MEDS: *HR* OxyCODONE/APAP 10/325 TABLET PO PRN ×4 (02:45→23:43)
[2020-03-13 04:14] LABS: Hematocrit 25.4 % (37.5-50.1); Hemoglobin 7.7 g/dL (12.9-16.9); Immature Granulocytes % 0.3 % (0-4); Lymphocytes # 0.7 K/mcL (0.6-4.6); Lymphocytes % 12.3 %; Mean Corpuscular HGB Conc 30.3 g/dL (31.6-35.5); Mean Corpuscular Hemoglobin 28.5 pg (28.0-33.3); Mean Corpuscular Volume 94.1 fL (83.0-100.0); Mean Platelet Volume 8.7 fL (9.4-12.4); Monocytes # 0.5 K/mcL (0.0-1.3); Monocytes % 8.7 %; Neutrophils # 4.5 K/mcL (1.6-8.9); Platelet Count 198 K/mcL (140-400); Red Cell Distribution Width 16.5 % (11.5-14.5); Segmented Neutrophils % 78.7 %; White Blood Count 5.8 K/mcL (4.3-11.1)
[2020-03-13 04:33] LABS: Calcium 8.5 mg/dL (8.6-10.3); Potassium 5.3 mEq/L (3.5-5.1)
[2020-03-13] MEDS: DilTIAZem CD (24hr) 180 MG CAP.ER.24H PO SCH (07:39)
[2020-03-13] MEDS: Lactulose Oral Soln 20 GM/30 ML UDC PO SCH ×2 (07:39→20:05)
[2020-03-13] MEDS: Silvasorb 44.4 ML TUBE TP SCH (07:39)
[2020-03-13] MEDS: amLODIPine 5 MG TABLET PO SCH (07:40)
[2020-03-13] MEDS: predniSONE 5 MG TABLET PO SCH (07:40)
[2020-03-13] MEDS ORDERED: Lidocaine/EPI 1:100k 1% 50 ML VIAL ONE (09:36)
[2020-03-13] MEDS ORDERED: 0.9 % Sodium Chloride 500 ML ONE ×2 (09:36→10:08)
[2020-03-13] MEDS ORDERED: *HR* Midazolam HCl 2 MG/2 ML VIAL IVP ONE (09:59)
[2020-03-13] MEDS ORDERED: *HR* FentaNYL (PF) 100 MCG/2 ML VIAL IVP ONE (09:59)
[2020-03-13] MEDS ORDERED: Isovue-300 50ML VIAL IVP ONE (10:51)
[2020-03-13 12:49] LABS: Hematocrit 26.9 % (37.5-50.1); Hemoglobin 8.1 g/dL (12.9-16.9)
[2020-03-13 13:01] LABS: Calcium 8.7 mg/dL (8.6-10.3); Potassium 4.5 mEq/L (3.5-5.1)
[2020-03-13] MEDS: 0.9 % Sodium Chloride 1,000 ML IVC SCH (13:22)
[2020-03-14] MEDS: 0.9 % Sodium Chloride 1,000 ML IVC SCH (03:49)
[2020-03-14] MEDS: *HR* OxyCODONE/APAP 10/325 TABLET PO PRN ×4 (05:08→20:39)
[2020-03-14 05:14] LABS: Eosinophils # 0.1 K/mcL (0.0-0.6); Hematocrit 23.2 % (37.5-50.1); Immature Granulocytes % 0.3 % (0-4); Lymphocytes # 1.1 K/mcL (0.6-4.6); Lymphocytes % 18.5 %; Mean Corpuscular HGB Conc 30.2 g/dL (31.6-35.5); Mean Corpuscular Hemoglobin 28.6 pg (28.0-33.3); Mean Corpuscular Volume 94.7 fL (83.0-100.0); Mean Platelet Volume 8.5 fL (9.4-12.4); Monocytes # 0.6 K/mcL (0.0-1.3); Platelet Count 199 K/mcL (140-400); Red Blood Count 2.45 M/mcL (4.19-5.50); Red Cell Distribution Width 16.5 % (11.5-14.5); Segmented Neutrophils % 69.2 %; White Blood Count 5.8 K/mcL (4.3-11.1)
[2020-03-14 05:29] LABS: Calcium 8.1 mg/dL (8.6-10.3); Potassium 4.8 mEq/L (3.5-5.1)
[2020-03-14 07:50] LABS: Prothrombin Time 11.2 Seconds (9.4-12.1)
[2020-03-14] MEDS ORDERED: levoFLOXacin 750 MG/150 ML 750 MG/150 ML BAG IVPB SCH ×2 (09:00)
[2020-03-14] MEDS: DilTIAZem CD (24hr) 180 MG CAP.ER.24H PO SCH (09:13)
[2020-03-14] MEDS: predniSONE 5 MG TABLET PO SCH (09:14)
[2020-03-14] MEDS: Lactulose Oral Soln 20 GM/30 ML UDC PO SCH ×2 (09:15→20:39)
[2020-03-14] MEDS: amLODIPine 5 MG TABLET PO SCH (09:27)
[2020-03-14] MEDS: Silvasorb 44.4 ML TUBE TP SCH (09:28)
[2020-03-14] MEDS ORDERED: 0.9 % Sodium Chloride 250 ML ONE (10:49)
[2020-03-15 01:22] LABS: Eosinophils % 0.6 %; Hematocrit 27.3 % (37.5-50.1); Hemoglobin 8.4 g/dL (12.9-16.9); Immature Granulocytes % 0.4 % (0-4); Lymphocytes # 0.7 K/mcL (0.6-4.6); Lymphocytes % 10.5 %; Mean Corpuscular HGB Conc 30.8 g/dL (31.6-35.5); Mean Corpuscular Hemoglobin 28.3 pg (28.0-33.3); Mean Corpuscular Volume 91.9 fL (83.0-100.0); Mean Platelet Volume 8.6 fL (9.4-12.4); Monocytes # 0.6 K/mcL (0.0-1.3); Monocytes % 8.5 %; Neutrophils # 5.3 K/mcL (1.6-8.9); Platelet Count 205 K/mcL (140-400); Red Blood Count 2.97 M/mcL (4.19-5.50); Red Cell Distribution Width 16.3 % (11.5-14.5); White Blood Count 6.7 K/mcL (4.3-11.1)
[2020-03-15 01:41] LABS: Calcium 8.6 mg/dL (8.6-10.3); Potassium 4.9 mEq/L (3.5-5.1)
[2020-03-15] MEDS: *HR* OxyCODONE/APAP 10/325 TABLET PO PRN ×5 (02:23→21:32)
[2020-03-15] MEDS: amLODIPine 5 MG TABLET PO SCH ×2 (08:46→22:40)
[2020-03-15] MEDS: DilTIAZem CD (24hr) 180 MG CAP.ER.24H PO SCH ×2 (08:46→22:39)
[2020-03-15] MEDS: Lactulose Oral Soln 20 GM/30 ML UDC PO SCH ×3 (08:46→22:40)
[2020-03-15] MEDS: predniSONE 5 MG TABLET PO SCH ×2 (08:47→22:41)
[2020-03-15] MEDS: Silvasorb 44.4 ML TUBE TP SCH ×2 (12:31→22:41)
[2020-03-15] MEDS: *HR* FentaNYL PATCH 25 MCG PATCH TD SCH (15:32)
[2020-03-16] MEDS: *HR* OxyCODONE/APAP 10/325 TABLET PO PRN (01:41)
[2020-03-16 01:52] LABS: Eosinophils # 0.1 K/mcL (0.0-0.6); Eosinophils % 1.5 %; Hematocrit 26.5 % (37.5-50.1); Hemoglobin 8.2 g/dL (12.9-16.9); Immature Granulocytes % 0.5 % (0-4); Lymphocytes # 0.8 K/mcL (0.6-4.6); Lymphocytes % 10.5 %; Mean Corpuscular HGB Conc 30.9 g/dL (31.6-35.5); Mean Corpuscular Hemoglobin 28.9 pg (28.0-33.3); Mean Corpuscular Volume 93.3 fL (83.0-100.0); Mean Platelet Volume 8.5 fL (9.4-12.4); Monocytes # 0.5 K/mcL (0.0-1.3); Monocytes % 7.3 %; Neutrophils # 5.9 K/mcL (1.6-8.9); Platelet Count 215 K/mcL (140-400); Red Blood Count 2.84 M/mcL (4.19-5.50); Red Cell Distribution Width 16.1 % (11.5-14.5); Segmented Neutrophils % 80.2 %; White Blood Count 7.4 K/mcL (4.3-11.1)
[2020-03-16 02:09] LABS: BUN/Creatinine Ratio 22 (6-26); Blood Urea Nitrogen 29 mg/dL (8-23); Calcium 8.6 mg/dL (8.6-10.3); Carbon Dioxide 26 mEq/L (23-29); Chloride 106 mEq/L (98-107); Glucose 113 mg/dL (70-105); Osmolality,Calculated 295 (280-300); Potassium 4.9 mEq/L (3.5-5.1); Sodium 139 mEq/L (136-145); eGFR For African Americans > 60 (> 60); eGFR For Non-African Americans 50 (> 60)
[2020-03-16] MEDS: amLODIPine 5 MG TABLET PO SCH (09:21)
[2020-03-16] MEDS: DilTIAZem CD (24hr) 180 MG CAP.ER.24H PO SCH (09:21)
[2020-03-16] MEDS: predniSONE 5 MG TABLET PO SCH (09:21)
[2020-03-16] MEDS: Silvasorb 44.4 ML TUBE TP SCH (09:21)
[2020-03-16] MEDS: Lactulose Oral Soln 20 GM/30 ML UDC PO SCH (09:21)
[2020-03-16] MEDS ORDERED: levoFLOXacin 750 MG TABLET PO SCH (09:30)
[2020-03-16 11:50] VITALS: BP 145/75
== END 2020-03-16 13:00 | disposition home health service (06) | DRG 698 ==
LOC: EMEROOARM 04:20 → 2NENU 04:20 → SUATTDRO 09:17 → 2NENU 10:02 → 2ANU 23:43
PROVIDERS: ADMIT Internal Medicine; ATTEND Internal Medicine

== ENCOUNTER 2020-03-31 21:08 | Inpatient (IN) ==
[2020-03-31] MEDS ORDERED: Isovue-370 500 ML BOTTLE IVP ONE (21:24)
[2020-03-31] MEDS ORDERED: Piperacillin/Tazobactam 3.375 GM in 0.9 % Sodium Chloride Mini Bag 100 ML IVPB ONE (21:25)
[2020-03-31] MEDS ORDERED: Azithromycin 500 MG in 0.9 % Sodium Chloride 250 ML IVPB ONE (21:25)
[2020-03-31 21:40] LABS: Basophils % 0.1 %; Eosinophils # 0.2 K/mcL (0.0-0.6); Hematocrit 29.2 % (37.5-50.1); Hemoglobin 8.9 g/dL (12.9-16.9); Immature Granulocytes % 0.6 % (0-4); Lymphocytes # 1.1 K/mcL (0.6-4.6); Lymphocytes % 11.3 %; Mean Corpuscular HGB Conc 30.5 g/dL (31.6-35.5); Mean Corpuscular Hemoglobin 28.7 pg (28.0-33.3); Mean Corpuscular Volume 94.2 fL (83.0-100.0); Mean Platelet Volume 8.6 fL (9.4-12.4); Monocytes # 0.5 K/mcL (0.0-1.3); Monocytes % 5.5 %; Neutrophils # 7.7 K/mcL (1.6-8.9); Platelet Count 267 K/mcL (140-400); Red Cell Distribution Width 15.9 % (11.5-14.5); Segmented Neutrophils % 80.5 %; White Blood Count 9.5 K/mcL (4.3-11.1)
[2020-03-31] MEDS ORDERED: *HR* FentaNYL (PF) 100 MCG/2 ML VIAL IVP ONE (21:49)
[2020-03-31] MEDS ORDERED: Ondansetron 4 MG/2 ML VIAL IVP ONE (21:51)
[2020-03-31 21:52] LABS: Prothrombin Time 11.5 Seconds (9.4-12.1)
[2020-03-31 21:55] LABS: Activated Partial Thrombo Time 35.4 Seconds (26.0-36.0)
[2020-03-31 22:02] LABS: Alanine Aminotransferase 9 Units/L (7-52); Albumin 3.4 g/dL (3.5-5.7); Albumin/Globulin Ratio 1.5 (1.1-2.2); Alkaline Phosphatase 64 Units/L (34-104); Aspartate Amino Transferase 10 Units/L (13-39); BUN/Creatinine Ratio 19 (6-26); Bilirubin,Indirect 0.4 mg/dL (0.0-1.0); Bilirubin,Total 0.4 mg/dL (0.3-1.0); Blood Urea Nitrogen 33 mg/dL (8-23); Calcium 9.1 mg/dL (8.6-10.3); Carbon Dioxide 28 mEq/L (23-29); Chloride 98 mEq/L (98-107); Globulin 2.2 g/dL (2.4-3.5); Glucose 135 mg/dL (70-105); Magnesium 2.1 mg/dL (1.6-2.6); Osmolality,Calculated 287 (280-300); Potassium 5.2 mEq/L (3.5-5.1); Sodium 134 mEq/L (136-145); Total Protein 5.6 g/dL (6.4-8.9); Troponin I < 0.03 ng/mL (< 0.04); eGFR For African Americans 45 (> 60); eGFR For Non-African Americans 37 (> 60)
[2020-03-31] MEDS ORDERED: Piperacillin/Tazobactam 3.375 GM in Water for inj. (sterile) 20 ML IVP ONE (22:38)
[2020-03-31] MEDS: 0.9 % Sodium Chloride 1,000 ML IVC SCH (23:21)
[2020-03-31 23:52] LABS: Bilirubin,Urine Negative (Negative); Blood,Urine Large (Negative); Glucose,Urine (UA) Normal (Normal); Ketones,Urine Trace mg/dL (Negative); Leukocyte Esterase,Urine Small (Negative); Nitrite,Urine Negative (Negative); PH,Urine 5.5 pH Units (5.0-8.0); Protein,Urine >=300 mg/dL (Neg-Trace); Specific Gravity,Urine >= 1.030 (1.010-1.025); Urobilinogen,Urine Normal (Normal)
[2020-03-31 23:55] LABS: Color,Urine Light Yellow (Yellow)
[2020-03-31 23:56] LABS: Clarity,Urine Slightly Hazy (Clear)
[2020-03-31 23:58] LABS: Squamous Epithelial Cell,Urine Few per lpf (None-Few)
[2020-03-31 23:59] LABS: RBC,Urine 50-100 per hpf (0-3); WBC,Urine 15-30 per hpf (0-3)
[2020-04-01] MEDS ORDERED: Naloxone 0.4 MG/ML INJ IVP PRN (02:01)
[2020-04-01] MEDS ORDERED: polyethylene glycoL 3350 17 GM POWD.PACK PO PRN (02:17)
[2020-04-01] MEDS ORDERED: LEUPROLIDE ACETATE 30 MG IM SCH (02:30)
[2020-04-01] MEDS ORDERED: 0.9 % Sodium Chloride 1,000 ML ONE (03:02)
[2020-04-01] MEDS ORDERED: Piperacillin/Tazobactam 3.375 GM in 0.9 % Sodium Chloride Mini Bag 100 ML IVPB SCH (06:00)
[2020-04-01 06:23] LABS: Hematocrit 25.7 % (37.5-50.1); Hemoglobin 7.6 g/dL (12.9-16.9); Mean Corpuscular HGB Conc 29.6 g/dL (31.6-35.5); Mean Corpuscular Hemoglobin 28.4 pg (28.0-33.3); Mean Corpuscular Volume 95.9 fL (83.0-100.0); Platelet Count 204 K/mcL (140-400); Red Blood Count 2.68 M/mcL (4.19-5.50); Red Cell Distribution Width 15.9 % (11.5-14.5); White Blood Count 8.7 K/mcL (4.3-11.1)
[2020-04-01 06:42] LABS: Calcium 8.3 mg/dL (8.6-10.3); Phosphorous 5.6 mg/dL (2.7-4.5); Potassium 4.6 mEq/L (3.5-5.1)
[2020-04-01] MEDS ORDERED: MetroNIDAZOLE 500 MG/100 ML 500 MG/100 ML BAG IVPB SCH (08:00)
[2020-04-01] MEDS ORDERED: Cefepime HCl 2,000 MG in 0.9 % Sodium Chloride Mini Bag 100 ML IVPB SCH (08:00)
[2020-04-01] MEDS: 0.9 % Sodium Chloride 1,000 ML IVC SCH (08:12)
[2020-04-01] MEDS: *HR* FentaNYL PATCH 25 MCG PATCH TD SCH ×2 (08:13→14:02)
[2020-04-01] MEDS ORDERED: SODIUM ZIRCONIUM CYCLOSILICATE 5 GM POWD.PACK PO SCH (09:00)
[2020-04-01] MEDS ORDERED: Mirabegron [Myrbetriq] 50 MG PO SCH (09:00)
[2020-04-01] MEDS ORDERED: Lactulose Oral Soln 20 GM/30 ML UDC PO SCH (09:00)
[2020-04-01] MEDS: dexAMETHasone 4 MG TABLET PO SCH ×2 (09:36→21:03)
[2020-04-01] MEDS: DilTIAZem CD (24hr) 180 MG CAP.ER.24H PO SCH (09:37)
[2020-04-01] MEDS: *HR* OxyCODONE/APAP 10/325 TABLET PO PRN ×2 (09:38→21:06)
[2020-04-01] MEDS: polyethylene glycoL 3350 17 GM POWD.PACK PO SCH (14:33)
[2020-04-01 17:21] LABS: Hematocrit 27.6 % (37.5-50.1); Hemoglobin 8.2 g/dL (12.9-16.9)
[2020-04-01] MEDS: Cefepime HCl 2,000 MG in 0.9 % Sodium Chloride Mini Bag 100 ML IVPB SCH (21:03)
[2020-04-01] MEDS ORDERED: Azithromycin 500 MG in 0.9 % Sodium Chloride 250 ML IVPB SCH (23:00)
[2020-04-02] MEDS: *HR* OxyCODONE/APAP 10/325 TABLET PO PRN ×2 (03:27→10:44)
[2020-04-02 06:05] LABS: Hematocrit 25.9 % (37.5-50.1); Hemoglobin 7.9 g/dL (12.9-16.9); Mean Corpuscular HGB Conc 30.5 g/dL (31.6-35.5); Mean Corpuscular Hemoglobin 29.4 pg (28.0-33.3); Mean Corpuscular Volume 96.3 fL (83.0-100.0); Platelet Count 206 K/mcL (140-400); Red Blood Count 2.69 M/mcL (4.19-5.50); Red Cell Distribution Width 15.4 % (11.5-14.5); White Blood Count 4.8 K/mcL (4.3-11.1)
[2020-04-02 06:34] LABS: Calcium 8.7 mg/dL (8.6-10.3); Potassium 5.3 mEq/L (3.5-5.1)
[2020-04-02] MEDS: DilTIAZem CD (24hr) 180 MG CAP.ER.24H PO SCH (09:06)
[2020-04-02] MEDS: dexAMETHasone 4 MG TABLET PO SCH (09:06)
[2020-04-02] MEDS: Cefepime HCl 2,000 MG in 0.9 % Sodium Chloride Mini Bag 100 ML IVPB SCH (09:06)
[2020-04-02] MEDS: polyethylene glycoL 3350 17 GM POWD.PACK PO SCH (09:06)
[2020-04-02 09:59] VITALS: BP 110/64
[2020-04-02] MEDS ORDERED: Cefdinir 300 MG CAPSULE PO SCH (10:00)
== END 2020-04-02 13:32 | disposition home health service (06) | DRG 698 ==
LOC: EMEROOARM 21:08 → 3ANU 21:08 → SUATTDRO 04-01 02:12 → 3ANU 04-01 03:45
PROVIDERS: ADMIT Internal Medicine; ATTEND Family Medicine